=== PATIENT | male | born 1980 | race Caucasian/White ===

== ENCOUNTER 2021-05-25 07:07 | Day surgery (SDC) | payer OTHER ==
[~2021-05-25] VITALS: Ht 181.6 cm; Wt 65.4 kg
[~2021-05-25 07:07] MED LIST: BACITRACIN OINT 500U/GM, 15 GM ONE; LIDOCAINE/PF 1%-EPI 1:200K, 30 ML ONE; OXYMETAZOLINE NASAL SPRAY 0.05%,30ML ONE
[2021-05-25 07:52] VITALS: BP 115/78
[2021-05-25] MEDS ORDERED: [UNRECOGNIZED DRUG - CODE] PO (07:59)
[2021-05-25] MEDS ORDERED: ELVI1TAB3 PO (07:59)
[2021-05-25] MEDS ORDERED: CHLORHEXIDINE 15 ML UDC PO ONE (08:00)
[2021-05-25] MEDS ORDERED: MIDAZOLAM 1 MG/ML, 2ML ONE (08:16)
[2021-05-25] MEDS ORDERED: FENTANYL PF 250 MCG/5ML ONE (08:16)
[2021-05-25] MEDS ORDERED: ONDANSETRON 2MG/ML, 2ML ONE (08:21)
[2021-05-25] MEDS ORDERED: LIDOCAINE-MPF 2% ,5ML ONE (08:21)
[2021-05-25] MEDS ORDERED: ROCURONIUM 10MG/ML,5ML ONE ×2 (08:21)
[2021-05-25] MEDS ORDERED: PROPOFOL 10 MG/ML, 20ML ONE (08:21)
[2021-05-25] MEDS ORDERED: SUCCINYLCHOLINE 20 MG/ML, 10ML ONE (08:21)
[2021-05-25] MEDS ORDERED: DEXAMETHASONE 4 MG/ML, 1ML ONE ×2 (08:21)
[2021-05-25] MEDS: LACTATED RINGERS 1,000 ML IV SCH ×2 (08:22→08:25)
[2021-05-25] MEDS ORDERED: ANTIHEMOPHILIC FACTOR IVPush ONE ×2 (08:30)
[2021-05-25] MEDS ORDERED: hydrALAzine 20 MG/ML, 1ML IV PRN (09:30)
[2021-05-25] MEDS ORDERED: PROMETHAZINE 25 MG/ML, 1ML IVPush PRN (09:30)
[2021-05-25] MEDS ORDERED: OXYcodone 5 MG/5 ML ORAL.SOL UDC PO PRN (09:30)
[2021-05-25] MEDS ORDERED: ONDANSETRON 2MG/ML, 2ML IVPush PRN (09:30)
[2021-05-25] MEDS ORDERED: HYDROmorphone 1 MG/ML, 1ML INJ IVPush PRN (09:30)
[2021-05-25] MEDS ORDERED: DIAZEPAM 5 MG/ML, 2ML IVPush PRN (09:30)
[2021-05-25] MEDS ORDERED: MEPERIDINE/PF 25MG/0.5ML IVPush PRN (09:30)
[2021-05-25] MEDS ORDERED: LABETALOL 5MG/ML, 20ML IV PRN (09:30)
[2021-05-25] MEDS ORDERED: ACETAMINOPHEN 325 MG TABLET PO PRN (09:30)
[2021-05-25] MEDS ORDERED: FENTANYL PF 100 MCG/2ML ONE (10:14)
[2021-05-25] MEDS: FENTANYL PF 100 MCG/2ML IV PRN ×2 (10:17→10:32)
[2021-05-25] MEDS ORDERED: OXYcodone 5 MG/5 ML ORAL.SOL UDC ONE (10:30)
== END 2021-05-25 14:55 | disposition home or self-care (01) ==
LOC: OUT 07:07
PROVIDERS: ATTEND Otolaryngology
DX: J34.2 Deviated nasal septum (principal); J34.3 Hypertrophy of nasal turbinates; J34.89 Other specified disorders of nose and nasal sinuses; I10 Essential (primary) hypertension; D66 Hereditary factor VIII deficiency; Z79.899 Other long term (current) drug therapy; Z98.890 Other specified postprocedural states
CPT/HCPCS: 30140; 30520; J0330; J1100; J2250; J2405; J2704; J3010; J7120

== ENCOUNTER 2021-06-05 17:13 | Emergency (ER) | payer OTHER ==
[~2021-06-05] VITALS: Ht 182.9 cm; Wt 62.6 kg
[~2021-06-05 17:13] MED LIST changes: -BACITRACIN OINT 500U/GM, 15 GM ONE; +ELVI1TAB3 PO; -LIDOCAINE/PF 1%-EPI 1:200K, 30 ML ONE; -OXYMETAZOLINE NASAL SPRAY 0.05%,30ML ONE; +[UNRECOGNIZED DRUG - CODE] PO
--- NOTE | 2021-06-05 17:36 | NUR ---
CONTACT WITH PT, 41 YR OLD MALE HERE C/O "TO GET A CT OF MY LUNGS FOR A POSSIBLE BLOOD CLOT. I HAD SURGERY ON 05/25/21. I HAVE HAD SOB AND LOW GRADE FEVER, 103.5. I HAVE HEMOPHELIA, MY HEMOPHELIA DR WAS CONCERNED THAT WITH MY MEDS I MAY BE HAVING ISSUES" SOB AND FEVERS SINCE THE SURGERY
--- NOTE | 2021-06-05 17:40 | NUR ---
DATABASE DBA AT BEDSIDE TO DRAW BLOOD
--- NOTE | 2021-06-05 17:42 | NUR ---
PT UPDATED ON POC.
[2021-06-05 17:53] LABS: BASOPHILS % (AUTO) 1 % (0-1); EOSINOPHILS % (AUTO) 1 % (1-7); LYMPHOCYTES % (AUTO) 20 % (22-44); MEAN CORPUSCULAR HEMOGLOBIN 31.5 pg (27.5-34.5); MEAN CORPUSCULAR HGB CONC 34.8 g/dL (33.2-36.2); MEAN PLATELET VOLUME 6.8 fL (7.4-10.4); MONOCYTES % (AUTO) 10 % (2-9); NEUTROPHILS % (AUTO) 68 % (42-75); PLATELET COUNT 355 x10^3/uL (130-400); RED BLOOD COUNT 4.29 x10^6/uL (4.38-5.82); RED CELL DISTRIBUTION WIDTH 12.4 % (9.4-14.8)
[2021-06-05 18:01] LABS: ALBUMIN 3.6 g/dL (3.4-5.0); ANION GAP 7 mmol/L (5-15); CALCIUM 9.4 mg/dL (8.5-10.1); CHLORIDE 103 mmol/L (98-107); CREATININE 1.11 mg/dL (0.7-1.3)
[2021-06-05 18:42] VITALS: BP 126/78
--- NOTE | 2021-06-05 18:52 | NUR ---
REPORT TO KULDEEP ARMENDARIZ. DR FRANKLIN AT BEDSIDE TO VIRGIE PT
--- NOTE | 2021-06-05 19:28 | NUR ---
DC EDUCATION PROVIDED, PT DEMONSTRATES UNDERSTANDING. PT AMBULATED STEADILY TO DC WITH RN.
== END 2021-06-05 19:30 | disposition home or self-care (01) ==
LOC: ED 17:18
DX: R06.00 Dyspnea, unspecified (principal); R53.83 Other fatigue; R06.02 Shortness of breath; R50.9 Fever, unspecified; R94.31 Abnormal electrocardiogram [ECG] [EKG]; Z87.891 Personal history of nicotine dependence
CPT/HCPCS: 36415; 71045; 80048; 82040; 85025; 85379; 93005; 99285